=== PATIENT | female | born 1990 | race Caucasian/White ===

== ENCOUNTER → 2021-09-18 | Emergency (ER) | payer OTHER ==
[~2021-09-18] MED LIST: FERROUS SULFAT325 M2 PO; MACROBID 100 M100 MG PO; PRENATAL VITAM1 EAC8 PO; TRANDATE 200 M200 MG PO
[2021-09-18 20:01] LABS: HEMOGLOBIN 13.8 gm/dl (12.3-15.3); RED BLOOD COUNT 4.69 M/UL (4.00-5.10); WHITE BLOOD COUNT 9.3 K/UL (4.5-11.0)
[2021-09-18 20:21] LABS: BUN/CREATININE RATIO 15 (0-10)
== END | disposition left against medical advice (07) ==
LOC: ER1 18:51
PROVIDERS: Physician Assistant
DX: O20.9 Hemorrhage in early pregnancy, unspecified (principal); Z3A.11 11 weeks gestation of pregnancy
CPT/HCPCS: 80048; 81001; 83690; 83735; 84702; 84703; 85025; 86900; 86901; 87086; 99283